=== PATIENT | female | born 1960 | race Caucasian/White ===

== ENCOUNTER → 2021-10-18 | Day surgery (SDC) | payer OTHER ==
[~2021-10-18] MED LIST: Lactated Ringers 1,000 ML IV SCH; Propofol 200 MG/20 ML SDV ONE
--- NOTE | 2021-10-18 12:55 | OR ---
DATE OF OPERATION: 10/18/2021 PREOPERATIVE DIAGNOSIS: SCREENING COLONOSCOPY. POSTOPERATIVE DIAGNOSIS: SCREENING COLONOSCOPY. SURGEON: Pietro Noel MD PROCEDURE: FULL-LENGTH COLONOSCOPY. ANESTHESIA: MAC. COMPLICATIONS: None. SPECIMEN: None. FINDINGS: Normal full-length colonoscopy. RECOMMENDATIONS: Followup colonoscopy in 10 years. INDICATIONS: Mrs. Mukherjee was seen by her primary provider. It had been 10 years since her last endoscopy. She was sent for screening. DESCRIPTION OF PROCEDURE: The patient was prepped and draped, placed in the left lateral decubitus position. A lubricated Olympus colonoscope was inserted and with relative ease advanced to the cecum. Direct visualization of ileocecal valve and appendiceal orifice was accomplished. The bowel prep was excellent. Upon withdrawal of the scope, throughout the entire length of the colon I could find no polyps, masses, ulceration, or bleeding sites. There were no vascular abnormalities or signs of colitis. No signs of diverticula. The rectal vault was benign. Retroflexion showed no perianal lesions. Air was suctioned. Scope removed without complication. MILA/EZRA /[id number]
== END ==
LOC: CC.SDS 08:50
PROVIDERS: ATTEND Family Medicine
DX: Z12.11 Encounter for screening for malignant neoplasm of colon (principal); G43.909 Migraine, unspecified, not intractable, without status migrainosus; Z79.899 Other long term (current) drug therapy; Z98.890 Other specified postprocedural states; Z83.79 Family history of other diseases of the digestive system; Z80.0 Family history of malignant neoplasm of digestive organs
CPT/HCPCS: 45378; J2704; J7120

== ENCOUNTER 2025-03-10 11:17 | Day surgery (SDC) | payer OTHER ==
[2025-03-10] MEDS: Lactated Ringers 1,000 ML IV SCH (11:38)
[2025-03-10] MEDS ORDERED: Midazolam 1 MG/ML 2 ML SDV ONE (11:50)
[2025-03-10] MEDS ORDERED: Propofol 200 MG/20 ML SDV ONE (11:50)
[2025-03-10] MEDS ORDERED: fentaNYL 50 MCG/ML SDV ONE (11:50)
[2025-03-10] MEDS ORDERED: Lidocaine 2% 20 ML MDV ONE (11:50)
[2025-03-10] MEDS ORDERED: Ketamine 200 MG/20 ML MDV ONE (11:50)
== END 2025-03-10 13:02 | disposition home or self-care (01) ==
LOC: CC.SDS 11:17
PROVIDERS: ATTEND Family Medicine
DX: K29.50 Unspecified chronic gastritis without bleeding (principal); E03.9 Hypothyroidism, unspecified; Z79.890 Hormone replacement therapy; Z79.899 Other long term (current) drug therapy
CPT/HCPCS: 00731; 87070; 87205; J2003; J2250; J2704; J3010; J3490; J7120